=== PATIENT | male | born 1975 | race Caucasian/White ===

== ENCOUNTER 2022-08-01 06:01 | Day surgery (SDC) | payer SELFPAY ==
--- NOTE | 2022-08-01 06:36 | PCM.HP.BLA ---
History and Physical Date of Admission: 08/01/22 Intake Vital Signs ? 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 07/11/22 [History Confirmed 07/11/22] PFSH Medical History?(Updated 07/12/22 @ 09:[address] Rad Brooks MD) Umbilical hernia Surgical History?(Updated 07/11/22 @ 13:08 by Rosie Palam) History of right inguinal hernia repair Family History?(Updated 07/11/22 @ 13:09 by Rosie Palma) Mother Heart disease Social History?(Updated 07/11/22 @ 13:09 by Rosie Palma) Smoking Status:? Former smoker alcohol intake:? never substance use type:? does not use HPI HPI HPI: Patient says that this umbilical hernia has been there for several years but over the last year is growing larger.? He is not note any nausea or vomiting.? He denies fevers or chills. ROS General General: No weight change, appetite, fatigue, colon cancer, breast cancer or weakness HEENT HEENT: No difficulty swallowing, eye injury, eye surgery, swollen glands or hoarseness Endo Endocrine: No thyroid disease, diabetes mellitus, thyroid cancer, Hair loss, heat intolerance or cold intolerance Skin Skin: No rash or changing moles Breast Breast: No left breast lump, right breast lump, nipple discharge, breast pain, abnormal mammogram, abnormal US or breast enlargement Musc Musculoskeletal: No back problems, arthritis, rheumatoid arthritis, gout or joint pain Cardio Cardiovascular: No murmur, pacemaker, heart disease, atrial fibrillation, high blood pressure, heart attack, heart stent, palpitations, shortness of breat with exertion or chest pain Psych Psychiatric: No depression, anxiety or hearing voices Resp Respiratory: No shortness of breath, No sleep apnea, No cough, No COPD, No asthma, No emphysema and No wheezing Gastro Gastrointestinal: No abdominal pain, No nausea or vomiting, No diarrhea, No constipation, No blood in stool, No acid reflux, No hemorrhoids, No ulcers, No gallbladder problem and No black,tarry stools Archie Hematologic: No blood thinners, No blood disorders, No bleeding, No anemia and No blood clots Neuro Neurologic: No system reviewed and no additional complaints, except as documented, No as per HPI, No abnormal gait, No abnormal hearing, No abnormal movements, No abnormal speech, No behavioral changes, No burning sensations, No confusion, No convulsions, No disequilibrium, No dizziness, No localized weakness, No frequent falls, No headache(s), No lack of coordination, No loss of vision, No memory loss, No numbness, No other visual disturbances, No radicular pain, No restless legs, No sensory deficit, No syncope, No tingling, No tremor(s), No weakness and No other Exam Const General: cooperative Orientation: alert and oriented x3 HENMT Head: normal to inspection Neck Neck: normal visual inspection and full ROM Chest Chest palpation & inspection: normal inspection of the chest Resp Effort & Inspection: normal respiratory effort Auscultation: clear to auscultation bilaterally Cardio Rate: regular rate Rhythm: regular rhythm GI Inspection: non-distended Palpation: soft, hernia umbilical and nontender Skin General: no rashes or lesions noted Neuro General: patient alert and patient oriented x3 Extrem General: full ROM Psych Appearance: grossly normal Mental Status: mental status grossly normal Assessment and Plan Assessment and Plan (1) Umbilical hernia: ?Status:?Acute ?Qualifiers: ?Obstruction and gangrene presence:?without obstruction or gangrene? Qualified Code(s):?K42.9 - Umbilical hernia without obstruction or gangrene ?Plan: The patient has an umbilical hernia which is reducible.? The defect appears to be 1 cm or less.? I discussed repair with him.? I discussed open repair with possible mesh.? I discussed repairing the hernia with sutures if it is less than 1 cm in diameter but if is greater than 1 cm in diameter I recommend mesh placement.? I discussed the procedure in detail such as the risks of bleeding infection or injury to underlying organs.? Patient understands all the risks and is willing to proceed. Rad Brooks MD Pager: [facility] [address] [place] [address], [address] [place] [address] Office: I have seen and examined the patient and reviewed the H&P and there are no changes.
[2022-08-01] MEDS: Lactated Ringers 1,000 ML 15 ML IV (06:49)
[2022-08-01 06:52] VITALS: BP 127/88; PULSE 77; RESP 14; TEMP 36.6; O2SAT 98; BMI 27.1
[2022-08-01] MEDS: Cefazolin 2 GM in 0.9% Normal Saline 100 ML IV (07:25)
[2022-08-01] MEDS: Bupivacaine 0.5% PF 10 ML VIAL (07:53)
[2022-08-01 08:15] VITALS: BP 123/94; BP 127/88; PULSE 81; RESP 16; TEMP 36.6; O2SAT 95
--- NOTE | 2022-08-01 08:16 | OP.PCM_ITS ---
Report of Operation Date of Procedure: 08/01/22 Pre-Operative Diagnosis: Umbilical hernia Post-Operative Diagnosis: Umbilical hernia Surgery/Procedure Performed:: Umbilical hernia repair with mesh, 2 cm Specimen's removed: None Description of Procedure: Patient was brought back to the operating room and general anesthesia was induced. The abdomen was prepped and draped in usual sterile fashion. A curvilinear incision was marked inferior to the umbilicus and injected with local anesthetic. Incision was then made with a scalpel and deepened to the subcutaneous tissue. The hernia sac was dissected free from the umbilical stalk. The hernia sac was dissected free from the surrounding fascia and then it was reduced and the underlying fascia was cleared circumferentially. Next a small Ventralex ST mesh was placed in the preperitoneal space. The defect was approximately 2 cm. The fascia was then closed in a transverse fashion with interrupted 0 Nurolon sutures incorporating the mesh with each bite. The subcutaneous tissue was irrigated and suctioned dry and the incision was closed with interrupted 3-0 Vicryl suture and a running 4-0 Monocryl suture. Steri- Strips and bandage were applied. Patient was awoken and taken to PACU in stable condition and tolerated the procedure well. Grafts/Implants Used: Small ventralex ST mesh Admit VTE Documentation VTE Mechan Device Prophylaxis: SCD's
--- NOTE | 2022-08-01 08:18 | DCINST_ITS ---
Discharge Instructions Procedure Hernia Diet Discharge Diet: Light diet - advance as tolerated Activity Discharge Activity: May Not Drive (for 2-3 days or while taking narcotic pain meds.) and May Shower (with the bandage in place 1-2 days after surgery.) Lifting Restrictions: 20 pounds for 4-6 weeks. Additional Activity Instructions:: Climbing stairs is fine, walking is encouraged. Sitting in bed may be uncomfortable. Sitting up using your lateral muscles (sitting up sideways) is usually more comfortable. Do not drive, work heavy equipment of sign legal documents for 24 hours. An ice pack can provide more comfort. Pain medications may cause nausea, you should typically eat light foods as you take your pain medications. Pain medications may also cause constipation. If you have difficulty with this, discuss with your doctor. Dressing / Incision Call your doctor if your incision/area has: Continuous Slow Oozing, Sudden Increased Bleeding, Increased Pain/ Swelling, Increased Redness and Foul Smelling Discharge Call your doctor if you observe: Fever of 101 or Higher Suture Line Care: Avoid Pulling/Pushing and Avoid Pinching/Bending Remove Dressing in: 2 days (Remove clear bandage in 2 days, remove Steri-Strips in 7 to 10 days.) Follow Up Care Please Follow Up With: Rad Brooks MD When: Please call to schedule 2 week follow up appointment. [phone] Test Results: Test results from this visit will be discussed in further detail at your follow- up appointment, if applicable. Discharge Plan Admission Attending Provider: Rad Brooks Primary Care Provider: Eleno London Instructions Additional Instructions / Restrictions: Alternate ibuprofen and Tylenol for pain control. Oxycodone for breakthrough pain. Discharge Orders/Prescriptions Prescriptions: New oxycodone 5 mg tablet 5 - 10 mg PO Q6H PRN (Reason: pain) 5 Days Qty: 15 0RF Referrals / Follow Up: Eleno London DO [Primary Care Provider] - Disposition Disposition (needs filled in before D/C Order can be placed): Home, Self Care
[2022-08-01 08:30] VITALS: BP 117/80; BP 127/88; PULSE 81; RESP 16; O2SAT 94
[2022-08-01 08:44] VITALS: BP 117/80; BP 127/88; PULSE 82; RESP 16; TEMP 36.3; O2SAT 96
[2022-08-01 09:54] VITALS: BP 127/88; BP 141/90; PULSE 80; RESP 16; TEMP 36.7; O2SAT 97
== END 2022-08-01 10:14 | disposition home or self-care (01) ==
LOC: SDC 06:07 → AC 06:08
PROVIDERS: PCP Family Medicine; Referring Provider Surgery; Visit Provider Surgery
PROC: (CPT 49591; principal; 2022-08-01 07:15)
DX: K42.9 Umbilical hernia without obstruction or gangrene (principal); Z87.891 Personal history of nicotine dependence
CPT/HCPCS: 49591; 00750; J7120; C1781

== ENCOUNTER 2023-09-06 18:30 | Outpatient (RCR) | payer SELFPAY ==
--- NOTE | 2023-08-17 08:14 | HP.PTEVAL ---
Patient's Visit Information Visit Information Visit Information: KEYSHA GLORIA is a 48 year old M referred to Physical Therapy by MATT GRIMES with a diagnosis of L shoulder instability. Date of Evaluation: 08/17/23 Physical Therapist: JUAN SantizoT, OCS, CSCS Visit Plan Frequency: 1-2x /Week Duration: 4-6 Weeks Plan: 1-2x/week for 4-6 weeks as needed for: 1. ROM progression l shoulder 2. strength L shoulder. Given supine stick er and flexion and pendulum and scap circles today 3x/say with HO Next session IR ROM, progression er , elevation ROM and gentle strength when tolerated. Subjective Subjective: I had a fall and dislocated L shoulder and fractured. That was 4 weeks ago. 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 Also has burst vertebrae in LB and wears brace up and around and not aloud to lift things. Was in sling for 3 weeks and then x ray showed he could take it off and start moving it. It is moving better. Just has to be careul. Shoullder is not painful but slightly as he lifts up to tightness 2/10 and gone at rest. Sleep is good. Off work as composition roofer for another 2 months at least due to back. Will have x ray today. to make sure back is healing. Has been gently lifting arm. Basic ADLs are OK, helps pull up due to back. Spends day watching hunting videos, walks often and stays up for an hour or so. no regular exercises. Fishing and hunting are hobbies. Overall shoulder is 50% compared to a month ago. Pain L shoulder: Pain Intensity (Out of 10): 0 Pain Intensity Range: 0 and 2 Objective Objective: Has back brace on entering PT walking I and trasnferring I from chair, helps up from supine due to back. Good balance. Posture is forward scap and forward head slightly but funcitonal. AROM R shoulder WFL to 160 elevation adn 50 er and L3 IR. L shoulder AROM 90 elevation, 27 er, L4 IR with some discomfort at end range. PROM L shoulder flexion 130, abduction 135, er 30 reflexes 2/3 bi and tri B. Sensation UE WNL to gross light touch. Good mobility in scap and elbows and wrists B without pain. 4/5 strength elbows and wrists B, r shoulder 4+, L shoulder not tested today. Balance/Special Test Scores Quick DASH Score: 43.1800 Goals Goal 1:: AROM 155 elevation and 45 er without pain Goal Time Frame: 2-4 Weeks Goal 2:: Patient feel L shoulder 100% back to normal Goal Time Frame: 4-6 Weeks Goal 3:: Patient able to consider return to work with shoulder wihtout pain(back may limit this) Goal Time Frame: 4-6 Weeks Goal 4:: Quick dash score 12 or better Goal Time Frame: 4-6 Weeks Rehabilitation Potential Physical Therapy Diagnosis: L shoulder loss of ROM adn strength after fracture. Rehabilitation Potential: Good Anticipated Interventions Patient/Client Instruction: Educate patient on: Condition, Plan of Care and Risk Factors For the Purpose of:: To decrease pain, To increase ROM, To improve nutrient delivery to tissue, To improve muscle performance and motor function and To increase tolerance to activity/condition/position Therapeutic Exercise to Include: Strength training, Flexibilty training, Passive ROM and Active ROM For the Purpose of:: To decrease pain, To increase ROM, To improve nutrient delivery to tissue, To improve muscle performance and motor function, To increase tolerance to activity/condition/position and To improve ability of physical actions for home/community/work/leisure Manual Therapy Techniques to Include: Passive ROM For the Purpose of:: To increase ROM Text: Thank you for the opportunity to evaluate your patient. For Medicare and Medicare HMO plans, please review the plan of care and approve it. It will need to be FAXED BACK to us at [phone] for Medicare purposes. For Medicare only, by signing this I certify the plan of care. Please let me know if there are questions or concerns regarding this plan of care. Physician Signature: Date:
--- NOTE | 2023-09-28 07:39 | HP.PTDCSUM ---
Discharge Summary D/C summary: It has been my pleasure to treat KEYSHA GLORIA referred by MATT GRIMES, with the diagnosis of L shoulder instability for a total of 4 visit(s). Discharge Date: 09/28/23 Please see the following information for a summary of their discharge status. Subjective Subjective: Will see back doctor in 8 days, shoulder doctor not on schedule. Pain L shoulder: Pain Intensity (Out of 10): 0 Overall Improvement % Improvement: 80 Objective Objective/Function: Full aROM L shoulder but tight end range flexion and -10 degrees er vs R shoulder. strength in flexion abd, er, ir is 4/5 adn nearly symmetrical. Overall doing very well. Goals Goal 1:: AROM 155 elevation and 45 er without pain Goal 2:: Patient feel L shoulder 100% back to normal Goal 3:: Patient able to consider return to work with shoulder wihtout pain(back may limit this) Goal 4:: Quick dash score 12 or better Plan Plan: Pt called adn stated he has seen doctor and is doing well, Doctor did not think he needed any more PT. Will discontinue at this time at patient request. D/C Information d/c sentence: If there are questions or concerns regarding this patient's physical therapy, please feel free to call me at [phone]. Thank you for the referral of this patient. Sincerely, Derek Hodgson, DPT, OCS, CSCS Balance/Gait/Functional tests Balance/Special Test Scores Quick DASH Score: 43.1800 Improvement % Improvement: 80
== END 2023-09-06 19:00 | disposition home or self-care (01) ==
LOC: PT 18:30
PROVIDERS: PCP Family Medicine
DX: M25.312 Other instability, left shoulder (principal)
CPT/HCPCS: 97110; 97161; 97530